=== PATIENT | male | born 1990 ===

== ENCOUNTER 2018-05-28 02:00 | Emergency (ER) | payer SELFPAY ==
[2018-05-28 02:07] VITALS: TEMP 97.8
--- NOTE | 2018-05-28 03:36 | C.PDOC ---
History Of Present Illness 27 year old male homeless schizophrenic brought in via EMS one hour after being discharged from [facility]. Patient wants a place to stay, states he is new to the area, he was evaluated at [facility] where he was discharged then went to [facility] where he called 911, had discussion with police who then advised EMS to bring patient here. In the ER patient is calm, cooperative, bizarre, reports he is homeless, recently moved from [facility] a month ago, has been spending his days from hospital to hospital staying in the ER. Chief Complaint (Nursing): Medical Clearance History Per: Patient History/Exam Limitations: no limitations Onset/Duration Of Symptoms: Hrs Current Symptoms Are (Timing): Still Present Recent travel outside of the [place]: No Past Medical History Reviewed: Historical Data, Nursing Documentation, Vital Signs Vital Signs: Last Vital Signs Temp 97.8 F 05/28/18 02:04 Pulse 58 L 05/28/18 02:04 Resp 16 05/28/18 02:04 BP 131/84 05/28/18 02:04 Pulse Ox 100 05/28/18 02:04 - Medical History PMH: Asthma, Schizophrenia Family History: States: Unknown Family Hx - Social History Hx Alcohol Use: No Hx Substance Use: No Review Of Systems Constitutional: Negative for: Fever, Chills Cardiovascular: Negative for: Chest Pain, Palpitations Respiratory: Negative for: Cough, Shortness of Breath Gastrointestinal: Negative for: Nausea, Vomiting Neurological: Negative for: Weakness, Numbness Physical Exam - Physical Exam Appears: Non-toxic, Other (Well kept, clean, long hair and keating) Skin: Normal Color, Warm Head: Atraumatic, Normacephalic Oral Mucosa: Moist Neck: Normal, Supple Chest: Symmetrical, No Tenderness Cardiovascular: Rhythm Regular Respiratory: Normal Breath Sounds, No Rales, No Rhonchi, No Wheezing Gastrointestinal/Abdominal: Soft, No Tenderness Neurological/Psych: Oriented x3, Normal Speech ED Course And Treatment O2 Sat by Pulse Oximetry: 100 (Room air) Pulse Ox Interpretation: Normal Medical Decision Making Medical Decision Making: HOmeless, Schizophrenic no acute issues high functioning and processing no SI/HI Good insight in to Residential placement, so referred Disposition Doctor Will See Patient In The: Office Counseled Patient/Family Regarding: Studies Performed, Diagnosis - Disposition Referrals: [facility] [Outside] [facility] [Outside] [facility] [Outside] [facility] [Outside] [facility] [Outside] Disposition: HOME/ ROUTINE Disposition Time: 03:35 Condition: GOOD Additional Instructions: Seek nightly Residential placement, as directed Seek outpatient Psych resources near [facility] YOu may call for appt or walk-in Instructions: Schizophrenia Forms: [facility] (Turkmen) - Clinical Impression Clinical Impression: Schizophrenia, Homeless single person - Scribe Statement The provider has reviewed the documentation as recorded by the Scribe Cesar Loza All medical record entries made by the Scribe were at my direction and personally dictated by me. I have reviewed the chart and agree that the record a ccurately reflects my personal performance of the history, physical exam, medical decision making, and the department course for this patient. I have also personally directed, reviewed, and agree with the discharge instructions and disposition.
[2018-05-28 04:20] VITALS: BP 128/76; PULSE 62; RESP 17; O2SAT 99
== END 2018-05-28 04:18 | disposition home or self-care (01) ==
LOC: C.ER 02:00
DX: F20.9 Schizophrenia, unspecified (principal); Z59.0 Homelessness

== ENCOUNTER 2018-05-28 21:23 | Emergency (ER) | payer SELFPAY ==
[2018-05-28 21:35] VITALS: BP 116/72; PULSE 74; RESP 16; TEMP 97.8; O2SAT 99
--- NOTE | 2018-05-28 21:40 | C.PDOC ---
History Of Present Illness 27 y/o male, homeless and has history of schizophrenia, comes in to ED looking for a place to stay overnight. Patient was seen last night for the same reason and was directed to a long term. Patient states he is new to the area for the last month and admits to going from hospital to hospital looking for a place to stay. Unclear why he would not engage with long term system or local psychiatric services. Time Seen by Provider: 05/28/18 21:39 Chief Complaint (Nursing): Psychiatric Evaluation History Per: Patient History/Exam Limitations: no limitations Past Medical History Reviewed: Historical Data, Nursing Documentation, Vital Signs Vital Signs: Last Vital Signs Temp 97.8 F 05/28/18 21:31 Pulse 74 05/28/18 21:31 Resp 16 05/28/18 21:31 BP 116/72 05/28/18 21:31 Pulse Ox 99 05/28/18 21:31 - Medical History PMH: Asthma, Schizophrenia Denies: Diabetes, Hepatitis, HIV, HTN, Seizures, Sexually Transmitted Disease Family History: States: No Known Family Hx - Social History Hx Alcohol Use: No Hx Substance Use: No Review Of Systems Except As Marked, All Systems Reviewed And Found Negative. Constitutional: Negative for: Fever Gastrointestinal: Negative for: Nausea, Vomiting Physical Exam - Physical Exam Appears: Non-toxic, No Acute Distress, Other (Coherent, tall, thin) Skin: Warm, Dry Head: Atraumatic, Other (long keating) Eye(s): bilateral: Normal Inspection Oral Mucosa: Moist Neck: Supple Cardiovascular: Rhythm Regular, No Murmur Respiratory: Normal Breath Sounds, No Rales, No Rhonchi, No Wheezing Gastrointestinal/Abdominal: Soft, No Tenderness Extremity: Bilateral: Atraumatic Neurological/Psych: Oriented x3, Normal Speech ED Course And Treatment O2 Sat by Pulse Oximetry: 99 (RA) Pulse Ox Interpretation: Normal Medical Decision Making Medical Decision Making: schizo, homeless no acute issues brought from [place] for same as last night ?? Disposition Doctor Will See Patient In The: Office Counseled Patient/Family Regarding: Studies Performed, Diagnosis - Disposition Referrals: [facility] [Outside] [facility] [place] [Outside] [place] [facility] [Outside] [facility] [Outside] [facility] [Outside] Disposition: HOME/ ROUTINE Disposition Time: 21:40 Condition: GOOD Additional Instructions: seek Mental Health follow-up Homeless- seek nightly Detention Placement as directed Instructions: Schizophrenia Forms: [employer] (Barbadian) - Clinical Impression Clinical Impression: Schizophrenia, Homeless single person - Scribe Statement The provider has reviewed the documentation as recorded by the Alisaibe Luli Gallardo Provider Attestation: All medical record entries made by the Alisaibgabriella were at my direction and personally dictated by me. I have reviewed the chart and agree that the record accurately reflects my personal performance of the history, physical exam, medical decision making, and the department course for this patient. I have also personally directed, reviewed, and agree with the discharge instructions and disposition.
== END 2018-05-28 22:10 | disposition home or self-care (01) ==
LOC: C.ER 21:23
DX: F20.9 Schizophrenia, unspecified (principal); Z59.0 Homelessness

== ENCOUNTER 2018-05-29 22:55 | Emergency (ER) | payer SELFPAY ==
[2018-05-29 23:09] VITALS: RESP 18
[2018-05-29 23:58] LABS: BASO # 0.1 K/uL (0.0-0.2); BASO % 0.9 % (0.0-2.0); EOS # 0.2 K/uL (0.0-0.7); EOS % 2.8 % (0.0-4.0); HEMOGLOBIN 12.9 g/dL (12.0-18.0); LYMPH # 1.5 K/uL (1.0-4.3); LYMPH % 25.1 % (20.0-40.0); MEAN CELL VOLUME 84.3 fL (80.0-94.0); MEAN CORPUSCULAR HEMOGLOBIN 27.9 pg (27.0-31.0); MEAN CORPUSCULAR HGB CONC 33.1 g/dL (33.0-37.0); MEAN PLATELET VOLUME 7.3 fL (7.2-11.7); MONO # 0.7 K/uL (0.0-0.8); MONO % 10.6 % (0.0-10.0); NEUT # 3.7 K/uL (1.8-7.0); NEUT % 60.6 % (50.0-75.0); NRBC % 0.1 % (0.0-2.0); RBC 4.62 Mil/uL (4.40-5.90); RED CELL DISTRIBUTION WIDTH 13.5 % (11.5-14.5); WHITE BLOOD COUNT 6.2 K/uL (4.8-10.8)
--- NOTE | 2018-05-30 00:12 | C.PDOC ---
History Of Present Illness Patient reports history of schizophrenia, states he is not taking his medications. States that he hears voices and is seeing people that aren't there. Denies SI/HI. History is difficult to obtain as patient appears intoxicated and has flight of ideas, not directly answering questions. Denies any medical complaints at this time. Admits to PCP use today. Time Seen by Provider: 05/29/18 23:24 Chief Complaint (Nursing): Medical Clearance History Per: Patient History/Exam Limitations: intoxication, other (schizophrenia) Past Medical History Reviewed: Historical Data, Nursing Documentation, Vital Signs Vital Signs: Last Vital Signs Temp 98.3 F 05/29/18 23:04 Pulse 78 05/29/18 23:04 Resp 18 05/29/18 23:04 BP Pulse Ox 96 05/29/18 23:04 SHAUN Report Viewed: Yes - Medical History PMH: Asthma, Bipolar Disorder, Schizophrenia Denies: Diabetes, Hepatitis, HIV, HTN, Seizures, Sexually Transmitted Disease Family History: States: Unknown Family Hx - Social History Hx Alcohol Use: No Hx Substance Use: No - Immunization History Hx Tetanus Toxoid Vaccination: No Hx Influenza Vaccination: Yes Hx Pneumococcal Vaccination: No Review Of Systems Except As Marked, All Systems Reviewed And Found Negative. Constitutional: Negative for: Fever Cardiovascular: Negative for: Chest Pain Respiratory: Negative for: Cough, Shortness of Breath Gastrointestinal: Negative for: Nausea, Vomiting Genitourinary: Negative for: Dysuria Neurological: Negative for: Weakness, Numbness Psych: Positive for: Psychosis. Negative for: Suicidal ideation Physical Exam - Physical Exam Appears: Unkempt, Other (Intoxicated) Skin: Normal Color, Warm, Dry Eye(s): bilateral: Normal Inspection Oral Mucosa: Moist Cardiovascular: Rhythm Regular Respiratory: Normal Breath Sounds Gastrointestinal/Abdominal: Normal Exam Extremity: No Deformity, No Swelling Neurological/Psych: No Normal Speech (slurred), Slow To Respond With Command ED Course And Treatment - Laboratory Results Result Diagrams: 05/29/18 23:55 05/29/18 23:55 O2 Sat by Pulse Oximetry: 96 Medical Decision Making Medical Decision Making: Patient medically cleared and evaluated by crisis, cleared for discharge with referral to [facility] and info for [facility] as patient is homeless. Patient able to ambulate. Has flight of ideas but is AAOx3 with no SI/HI. Disposition - Disposition Disposition: HOME/ ROUTINE Disposition Time: 03:45 Condition: STABLE Additional Instructions: BIPIN SAWYER, thank you for letting us take care of you today. Your provider was Zoë Bliss MD and you were treated for EDP. The emergency medical care you received today was directed at your acute symptoms. If you were prescribed any medication, please fill it and take as directed. It may take several days for your symptoms to resolve. Return to the Emergency Department if your symptoms worsen, do not improve, or if you have any other problems. Please contact your doctor or call one of the physicians/clinics you have been referred to that are listed on the Patient Visit Information form that is included in your discharge packet. Bring any paperwork you were given at discharge with you along with any medications you are taking to your follow up visit. Our treatment cannot replace ongoing medical care by a primary care provider outside of the emergency department. Thank you for allowing the [facility] team to be part of your care today. If you had an X-Ray or CT scan: A Radiologist will review the ED reading if any change in treatment is needed we will contact you. If you had a blood, urine, or wound culture: It will take several days for the results, if any change in treatment is needed we will contact you. If you had an STI test: It will take 48 hours for the results. Please call after 1 week if you have not heard back. Instructions: Schizophrenia (DC) Forms: [employer] (Albanian) - Clinical Impression Clinical Impression: Schizophrenia
[2018-05-30 00:32] LABS: ALB/GLOB RATIO 1.4 (1.0-2.1); ALBUMIN 3.8 g/dL (3.5-5.0); ALT/SGPT 27 U/L (21-72); AST/SGOT 26 U/L (17-59); BLOOD UREA NITROGEN 20 mg/dL (9-20); CALCIUM 8.6 mg/dl (8.6-10.4); GFR NON-AFRICAN AMERICAN > 60
[2018-05-30 02:26] LABS: URINE BILIRUBIN NEGATIVE (NEGATIVE); URINE BLOOD NEGATIVE (NEGATIVE); URINE CLARITY Clear (Clear); URINE COLOR Yellow (YELLOW); URINE GLUCOSE (UA) NORMAL (Normal); URINE LEUKOCYTE ESTERASE NEG Leu/uL (Negative); URINE PROTEIN NEGATIVE (NEGATIVE); URINE UROBILINOGEN NORMAL mg/dL (0.2-1.0)
[2018-05-30 02:41] LABS: BARBITURATES, UR NEGATIVE (NEGATIVE); BENZODIAZEPINES, UR NEGATIVE (NEGATIVE); OPIATES, UR NEGATIVE (NEGATIVE); PHENCYCLIDINE, UR NEGATIVE (NEGATIVE)
[2018-05-30 05:37] VITALS: BP 122/76; PULSE 72; TEMP 98.1; O2SAT 98
== END 2018-05-30 05:38 | disposition home or self-care (01) ==
LOC: C.ER 22:55
DX: F20.9 Schizophrenia, unspecified (principal)
CPT/HCPCS: 80053; 81001; 83735; 84100; 85025; 99282; G0480

== ENCOUNTER 2018-06-08 12:55 | Emergency (ER) | payer MEDICAID ==
[2018-06-08 12:55] VITALS: BMI 24.3
[2018-06-08 13:01] VITALS: BP 117/75; PULSE 64; RESP 20; TEMP 97.8; O2SAT 97
--- NOTE | 2018-06-08 13:13 | C.PDOC ---
History Of Present Illness 27 yr old male w/ hx of Asthma, Bipolar Disorder, Schizophrenia p/w back pain. [place] Ed because he was complaining of some mild back pain after he woken up and told to leave the mall. No fall or trauma. No IVDU. No enuresis / encoparesis or saddle anesthesia. No palpitations or hx of abnl heart rythmn. No urinary complaints. He notes back pain is the same as his chronic back pain. He notes the pain as being throbbing and mild. No FND. No fever, chills or night sweats. No abdominal pain, GI or complaints No chest pain, headache, or shortness of breath. Time Seen by Provider: 06/08/18 13:12 Chief Complaint (Nursing): Back Pain Past Medical History Vital Signs: Last Vital Signs Temp 97.8 F 06/08/18 12:59 Pulse 64 06/08/18 12:59 Resp 20 06/08/18 12:59 BP 117/75 06/08/18 12:59 Pulse Ox 97 06/08/18 12:59 Primary Care Provider: Non [facility] Provider, - Medical History PMH: Asthma, Bipolar Disorder, Schizophrenia Denies: Diabetes, Hepatitis, HIV, HTN, Seizures, Sexually Transmitted Disease - [facility] Procedures MEDICATION MANAGEMENT (06/01/18) Family History: States: Unknown Family Hx - Social History Hx Alcohol Use: No Hx Substance Use: No - Immunization History Hx Tetanus Toxoid Vaccination: No Hx Influenza Vaccination: Yes Hx Pneumococcal Vaccination: No Review Of Systems Constitutional: Negative for: Fever, Chills, Weakness Eyes: Negative for: Pain, Vision Change ENT: Negative for: Ear Pain, Ear Discharge Cardiovascular: Negative for: Chest Pain, Palpitations Respiratory: Negative for: Cough, Shortness of Breath, SOB with Excertion, Wheezing Gastrointestinal: Negative for: Nausea, Vomiting, Abdominal Pain, Diarrhea, Constipation, Melena, Hematochezia, Hematemesis, Rectal Pain Genitourinary: Negative for: Dysuria, Frequency Musculoskeletal: Positive for: Back Pain. Negative for: Neck Pain, Shoulder Pain, Hand Pain, Foot Pain Skin: Negative for: Rash, Lesions Neurological: Negative for: Weakness, Numbness, Change in Speech, Altered Mental Status Psych: Negative for: Anxiety Physical Exam - Physical Exam Appears: Well, Non-toxic, No Acute Distress Skin: Normal Color, Warm, Dry Head: Atraumatic, Normacephalic Eye(s): bilateral: Normal Inspection, PERRL, EOMI Ear(s): Bilateral: Normal Nose: Normal Oral Mucosa: Moist Throat: Normal, No Erythema, No Exudate Neck: Normal, Normal ROM, No Decreased ROM, No Midline Cervical Tenderness, No Paracervical Tenderness, Supple, Other (no meningeal signs) Lymphatic: No Adenopathy Chest: No Symmetrical, No Deformity Cardiovascular: Rhythm Regular, No Friction Rub Respiratory: Normal Breath Sounds, No Rales, No Rhonchi, No Wheezing Gastrointestinal/Abdominal: Normal Exam, Soft, No Tenderness, No Organomegaly, No Mass, No Distention, No Guarding, No Rebound, No Hernia Back: Normal Inspection, No CVA Tenderness, No Vertebral Tenderness, No Decreased ROM, Paraspinal Tenderness (lumbar), No Straight Leg Raising Extremity: Normal ROM, No Tenderness, No Calf Tenderness, No Deformity, No Swelling Extremity: Bilateral: Atraumatic, Hips Non-Tender, No Pedal Edema, Normal Color And Temperature, Normal ROM Pulses: Left Dorsalis Pedis: Normal, Right Dorsalis Pedis: Normal Neurological/Psych: Oriented x3, Normal Speech, Normal Cognition, Normal Cranial Nerves, No Cerebellar Signs, Normal Motor Gait: Steady Extremity: Right: No Drift, Left: No Drift ED Course And Treatment O2 Sat by Pulse Oximetry: 97 Medical Decision Making Medical Decision Makin yr old male p/w chronic back pain. No cauda equina sxs, No midline tenderness on exam, Neuro exam unremarkable. No urinary complaints. Likely chronic back pain. No trauma or fall and pt was sleeping peacefully per pt in mall prior to being interrupted. 1440 neuro exam remains unremarkable and pt remains w/ out cauda equina signs or midline tenderness. pain improved, clear for d/c home w/ return indications and f/u pt agreeable to plan Disposition - Disposition Referrals: [email or web address] ([email or web address]) [facility] [Outside] [facility] [Outside] [facility] [Outside] Disposition: HOME/ ROUTINE Disposition Time: 14:25 Condition: STABLE Additional Instructions: BIPIN SAWYER, thank you for letting us take care of you today. Your provider was Tung Dubois and you were treated for BACK PAIN. The emergency medical care you received today was directed at your acute symptoms. If you were prescribed any medication, please fill it and take as directed. It may take several days for your symptoms to resolve. Return to the Emergency Department if your symptoms worsen, do not improve, or if you have any other problems. Please contact your doctor or call one of the physicians/clinics you have been referred to that are listed on the Patient Visit Information form that is included in your discharge packet. Bring any paperwork you were given at discharge with you along with any medications you are taking to your follow up visit. Our treatment cannot replace ongoing medical care by a primary care provider outside of the emergency department. Thank you for allowing the [facility] team to be part of your care today. If you had an X-Ray or CT scan: A Radiologist will review the ED reading if any change in treatment is needed we will contact you. If you had a blood, urine, or wound culture: It will take several days for the results, if any change in treatment is needed we will contact you. If you had an STI test: It will take 48 hours for the results. Please call after 1 week if you have not heard back. Instructions: Chronic Pain (DC), Low Back Pain (DC) Forms: [employer] (Australian) - Clinical Impression Clinical Impression: Lower back pain
--- NOTE | 2018-06-08 14:33 | RAD ---
Date of service: 06/08/2018 PROCEDURE: Radiographs of the Lumbar Spine. Three views. HISTORY: back pain COMPARISON: None available. FINDINGS: BONES: Alignment appears satisfactory. No listhesis. No acute displaced fracture identified. DISC SPACES: Unremarkable. OTHER FINDINGS: None. IMPRESSION: No acute displaced fracture or subluxation identified.
== END 2018-06-08 14:45 | disposition home or self-care (01) ==
LOC: C.ER 12:55
DX: M54.5 Low back pain (principal)